=== PATIENT | male | born 2000 | race African-American/Black ===

== ENCOUNTER 2021-07-17 15:52 | Emergency (ER) | payer SELFPAY ==
[2021-07-17] MEDS ORDERED: Tetracaine 0.5% PF 4 ML BOT ONE (16:41)
[2021-07-17] MEDS ORDERED: Fluorescein Opthalmic Strip ONE (16:41)
== END 2021-07-17 18:15 | disposition home or self-care (01) ==
LOC: CSHERS 15:52
DX: B34.9 Viral infection, unspecified (principal); R07.2 Precordial pain; F17.210 Nicotine dependence, cigarettes, uncomplicated
CPT/HCPCS: 71045; 93005

== ENCOUNTER 2021-09-10 09:13 | Emergency (ER) | payer SELFPAY | END 2021-09-10 11:36 | disposition home or self-care (01) | LOC: CSHERS 09:13 | DX: B34.9 Viral infection, unspecified (principal); F17.210 Nicotine dependence, cigarettes, uncomplicated | CPT/HCPCS: 99283 ==

== ENCOUNTER 2021-10-17 23:18 | Emergency (ER) | payer SELFPAY | END 2021-10-18 00:21 | disposition home or self-care (01) | LOC: CSHERS 23:18 | DX: R07.9 Chest pain, unspecified (principal); M79.10 Myalgia, unspecified site; F17.210 Nicotine dependence, cigarettes, uncomplicated | CPT/HCPCS: 71045; 93005 ==

== ENCOUNTER 2022-01-10 00:27 | Emergency (ER) | payer BC, SELFPAY ==
[2022-01-10] MEDS ORDERED: Ibuprofen 200 MG TAB ONE (01:15)
[2022-01-10] MEDS ORDERED: predniSONE 20 MG TAB ONE (01:37)
== END 2022-01-10 01:41 | disposition home or self-care (01) ==
LOC: CSHERS 00:27
DX: M70.41 Prepatellar bursitis, right knee (principal); F17.210 Nicotine dependence, cigarettes, uncomplicated
CPT/HCPCS: J7512

== ENCOUNTER 2022-08-01 22:53 | Emergency (ER) | payer BC ==
[2022-08-01] MEDS ORDERED: Dexamethasone 10 MG/ML VIAL ONE (23:39)
== END 2022-08-01 23:45 | disposition home or self-care (01) ==
LOC: CSHERS 22:53
DX: M54.50 Low back pain, unspecified (principal); F17.290 Nicotine dependence, other tobacco product, uncomplicated
CPT/HCPCS: 99283; J1100